=== PATIENT | female | born 1985 | race Caucasian/White ===

== ENCOUNTER 2018-04-14 00:12 | Emergency (ER) | payer OTHER ==
[~2018-04-14] VITALS: Ht 172.7 cm; Wt 56.0 kg
[2018-04-14] MEDS ORDERED: SODIUM CHLORIDE 0.9% 1,000 ML IV ONE (01:30)
[2018-04-14 02:50] VITALS: BP 111/67
== END 2018-04-14 03:19 | disposition home or self-care (01) ==
LOC: ER 00:12
DX: R55 Syncope and collapse (principal); E86.0 Dehydration
CPT/HCPCS: 93005; 96360; 99284; J7030